=== PATIENT | female | born 1965 | race Caucasian/White ===

== ENCOUNTER 2017-10-15 18:08 | Observation (INO) | payer MEDICAID ==
[~2017-10-15] VITALS: Ht 160 cm; Wt 50.0 kg
--- NOTE | ~2017-10-15 | DS ---
PATIENT:JAD BRANDT :65 MEDICAL RECORD: [id number] DISCHARGE SUMMARY ADMISSION DATE: 10/15/17 DISCHARGE DATE: 10/16/17 DATE OF ADMISSION: 10/15/2017. DATE OF DISCHARGE: 10/16/2017. ADMISSION DIAGNOSIS: Postcoital bleeding. DISCHARGE DIAGNOSIS: Postcoital bleeding. ATTENDING: Nawaf Vallejo MD HISTORY OF PRESENT ILLNESS: See the H&P in the chart. SUMMARY OF HOSPITALIZATION: The patient was admitted for observation. The patient was made n.p.o. at midnight with the understanding if bleeding continued, exam under anesthesia and possible repair of vaginal laceration which has been described previously in the Emergency Room. The patient did well overnight and had no further bleeding. The patient at the time of discharge is normotensive and not showing signs or symptoms of anemia. The patient has been given precautions and has been asked to follow up in the clinic. TRANSINT:[id number] Voice Confirmation ID: [id number] DOCUMENT ID: [id number] NAWAF VALLEJO MD at 0805 CC: [id number] DICTATION DATE: 11/15/17 09 ABLE BODIED SEAMAN: 11/15/17 1323 DIS IN 10/16/17 [facility] [address] [place] [address]
[2017-10-15 19:15] LABS: BASOPHILS 0.3 % (0-2); EOSINOPHILS 1.2 % (0-7); HEMOGLOBIN 10.4 g/dL (12-16); IMMATURE GRANULOCYTES 0.3 % (0-5); LYMPHOCYTES 13.9 % (15-50); MCH 29.1 pg (26.0-34.0); MCHC 33.5 g/dL (31.0-37.0); MCV 86.6 fL (80.0-100.0); MONOCYTES 3.9 % (2-11); NEUTROPHILS 80.4 % (40-80); PLATELET COUNT 264 10x3/uL (130-400); RBC 3.58 10x6/uL (4.00-5.40); RDW 13.6 % (11.5-14.5); WBC 18.3 10x3/uL (4.8-10.8)
[2017-10-15 19:19] LABS: INR 1.07 (0.85-1.17); PROTIME 13.5 SECONDS (11.6-15.0)
[2017-10-15 19:20] LABS: APTT 23.9 SECONDS (22.8-39.4)
[2017-10-15 19:30] LABS: ALBUMIN 3.2 g/dL (3.4-5.0); ALKALINE PHOSPHATASE 79 U/L (46-116); ALT (SGPT) 20 U/L (10-68); BILIRUBIN - TOTAL 0.16 mg/dL (0.2-1.3); CALC OSMOLALITY 285 mosm/kg (275-300); CALCIUM 8.9 mg/dL (8.5-10.1); CARBON DIOXIDE 23.6 mmol/L (21.0-32.0); CHLORIDE - SERUM 105 mmol/L (98-107); CREATININE - SERUM 0.7 mg/dL (0.6-1.3); POTASSIUM - SERUM 4.4 mmol/L (3.5-5.1); PROTEIN - SERUM 6.5 g/dL (6.4-8.2); SODIUM 139 mmol/L (136-145); UREA NITROGEN 26 mg/dL (7-18); eGFR NON AFRICAN AMERICAN > 90 mL/min (90-120)
[2017-10-15 19:34] LABS: GLUCOSE 155 mg/dL (74-106)
[2017-10-15 20:00] VITALS: BP 116/66
[2017-10-15] MEDS ORDERED: BAYER CHEWABLE81 MG PO (21:40)
[2017-10-15 21:57] LABS: HEMATOCRIT 26.8 % (36.0-48.0)
[2017-10-16] VITALS: BP 101/62
[2017-10-16 01:07] VITALS: BP 116/66; Ht 160 cm; Wt 50.0 kg
[2017-10-16 02:19] LABS: HEMATOCRIT 24.3 % (36.0-48.0); HEMOGLOBIN 8.5 g/dL (12-16)
[2017-10-16 04:00] VITALS: BP 110/62
[2017-10-16 09:17] VITALS: BP 127/77
[2017-10-16 10:44] VITALS: BP 136/79
[2017-10-16 10:49] LABS: HEMOGLOBIN 9.8 g/dL (12-16); MCH 29.3 pg (26.0-34.0); MCHC 33.6 g/dL (31.0-37.0); MCV 87.4 fL (80.0-100.0); MEAN PLATELET VOLUME 8.8 fL (7.4-10.4); PLATELET COUNT 219 10x3/uL (130-400); RBC 3.34 10x6/uL (4.00-5.40); RDW 14.3 % (11.5-14.5)
[2017-10-16 10:51] LABS: HEMATOCRIT 29.2 % (36.0-48.0); WBC 11.3 10x3/uL (4.8-10.8)
[2017-10-16 11:40] LABS: LYMPHOCYTES 17 % (15-50); MONOCYTES 1 % (2-11); NEUTROPHILS 81 % (40-80); PLATELET ESTIMATE NORMAL
[2017-10-16] MEDS ORDERED: ESTRACE 0.0142.5 GM VG (15:04)
[2017-10-16 15:17] VITALS: BP 130/72
== END 2017-10-16 17:25 | disposition home or self-care (01) ==
LOC: D.ER 18:08 → D.MS 20:02 → D.EDHOLD 20:02 → D.M2 20:02 → OBSVTIME 20:02 → D.MS 20:07 → D.M2 20:21
PROVIDERS: Emergency Medicine; Family Medicine; Obstetrics & Gynecology
DX: N93.0 Postcoital and contact bleeding (principal); N95.0 Postmenopausal bleeding; F31.9 Bipolar disorder, unspecified; Z72.0 Tobacco use